=== PATIENT | female | born 1965 | race Asian ===

== ENCOUNTER 2025-06-13 16:43 | Emergency (ER) | payer OTHER ==
[~2025-06-13] VITALS: Ht 160 cm; Wt 45.0 kg
[2025-06-13 17:14] LABS: PLATELET COUNT (AUTO) 319 K/uL (150-450); RED BLOOD CELL COUNT(AUTO) 4.10 MIL/uL (4.00-5.20); RED CELL DISTRIBUTION WIDTH 14.2 % (11.5-14.5); WHITE BLOOD COUNT (AUTO) 8.0 K/uL (4.5-11.0)
[2025-06-13 17:42] LABS: CALCIUM, TOTAL 8.6 mg/dL (8.8-10.5); CREATININE 0.78 mg/dL (0.60-1.30); GLOMERULAR FILTR. RATE CALC > 60 mL/min (>60); GLUCOSE,RANDOM 137 mg/dL (70-110); SODIUM SERUM 138 mmol/L (136-145); UREA NITROGEN, BLOOD 25 mg/dL (7-18)
[2025-06-13 17:52] LABS: APPEARANCE,URINE CLEAR (CLEAR); GLUCOSE, URINE (UA) NEGATIVE (NEGATIVE); LEUKOCYTE ESTERASE ,URINE NEGATIVE (NEGATIVE); NITRATE,URINE NEGATIVE (NEGATIVE); OCCULT BLOOD,URINE TRACE (NEGATIVE); SPECIFIC GRAVITIY, URINE 1.027 (1.003-1.030)
[2025-06-13 17:54] LABS: TROPONIN I-HIGH SENSITIVITY 4 ng/L (<51)
[2025-06-13 18:35] LABS: CALCIUM OXALATE CRYSTALS,UR Few /LPF (None Seen)
[2025-06-13] MEDS ORDERED: ACETAMINOPHEN 325 MG TABLET PO PRN (18:45)
[2025-06-13] MEDS ORDERED: SODIUM CHLORIDE 0.9% 1,000 ML IV ONE (18:45)
[2025-06-13] MEDS ORDERED: ONDANSETRON HCL 4 MG/2 ML VIAL IVP PRN (18:45)
[2025-06-13] MEDS ORDERED: MAGNESIUM HYDROXIDE SUSPENSION 30 ML UDCUP PO PRN (18:45)
[2025-06-13] MEDS ORDERED: POTASSIUM CHL 10 MEQ/WATER 50 ML IV PRN (19:00)
[2025-06-13 19:20] VITALS: BP 119/67; PULSE 71; RESP 18; TEMP 97.3; O2SAT 97
[2025-06-13] MEDS: POTASSIUM CHLORIDE 20 MEQ ER TABLET PO PRN (19:22)
[2025-06-14] MEDS ORDERED: HEPARIN SODIUM,PORCINE 5,000 UNITS/ML VIAL SQ SCH
[2025-06-14] MEDS ORDERED: FAMOTIDINE 20 MG TABLET PO SCH (09:00)
== END 2025-06-13 20:11 | disposition left against medical advice (07) ==
LOC: EMS 16:43 → EDH 18:44 → UNDOADMIN 18:44
DX: S01.81XA Laceration without foreign body of other part of head, initial encounter (principal); S01.01XA Laceration without foreign body of scalp, initial encounter; R53.1 Weakness; E87.6 Hypokalemia; R55 Syncope and collapse; Z98.890 Other specified postprocedural states; W19.XXXA Unspecified fall, initial encounter; Y93.89 Activity, other specified; Y92.89 Other specified places as the place of occurrence of the external cause; Y99.8 Other external cause status
CPT/HCPCS: 99285; 70450; 71045; 80048; 81001; 83880; 84443; 84484; 85025; 85610; 85730; 36415; 93005; J7030; G0378